=== PATIENT | male | born 1960 | race Caucasian/White ===

== ENCOUNTER 2022-06-02 02:43 | Emergency (ER) | payer SELFPAY ==
[~2022-06-02] VITALS: Ht 165.1 cm; Wt 68.0 kg
[2022-06-02] MEDS ORDERED: BACITRACIN ZINC OINT UDPKT TOP ONE (03:00)
[2022-06-02] MEDS ORDERED: LIDOCAINE HCL/EPINEPHRINE 1%-EPI 1:100,000 20 ML VIAL INFIL ONE (03:00)
[2022-06-02] MEDS ORDERED: LIDOCAINE HCL/EPINEPHRINE 1%-EPI 1:100,000 10 ML VIAL INFIL NR (03:15)
[2022-06-02 06:38] VITALS: BP 110/65
== END 2022-06-02 06:36 | disposition home or self-care (01) ==
LOC: ER 02:43
DX: S01.81XA Laceration without foreign body of other part of head, initial encounter (principal); W18.39XA Other fall on same level, initial encounter; Y93.89 Activity, other specified; Y92.89 Other specified places as the place of occurrence of the external cause; Y99.8 Other external cause status; F10.129 Alcohol abuse with intoxication, unspecified; Y90.0 Blood alcohol level of less than 20 mg/100 ml
CPT/HCPCS: 12013; 70450; 99284; J3490